=== PATIENT | female | born 1940 | race Caucasian/White ===

== ENCOUNTER → 2020-08-12 | Outpatient (CLI) | payer OTHER, MEDICARE ==
[~2020-08-12] VITALS: Ht 147.3 cm; Wt 54.9 kg
[~2020-08-12] MED LIST: ADVIL200 M1 PO; CARVEDILOL12.5 MG PO; EFFER-K 10 MEQ10 ME1 PO; ENALAPRIL MALEA10 M1 PO; KLOR-CON 10 ER10 MEQ PO; LASIX 40 MG TAB40 M1 OR; POTASSIUM20 PO
[2020-08-12 10:34] VITALS: BP 107/47
[2020-08-12 10:50] LABS: HEMATOCRIT 33.7 % (37.0-47.0); MCH 26.4 pg (26.0-34.0); MCHC 32.7 g/dL (28.0-37.0); MCV 80.7 fL (80.0-100.0); RBC 4.18 mil/uL (4.20-5.00); RDW-CV 14.7 % (10.5-14.5); WBC 5.6 thou/uL (4.0-11.0)
[2020-08-12 11:00] LABS: CALCIUM 9.2 mg/dL (8.5-10.1); CREATININE 0.6 mg/dL (0.6-1.3); POTASSIUM 4.3 mmol/L (3.5-5.1)
[2020-08-12 11:03] LABS: APTT 27.4 Seconds (25.0-31.3); PROTIME 10.7 Seconds (9.20-11.50)
[2020-08-12 11:05] LABS: ALBUMIN 3.2 g/dL (3.4-5.0); TOTAL BILIRUBIN 0.4 mg/dL (<0.1-1.0); TOTAL PROTEIN 6.4 g/dL (6.4-8.2)
[2020-08-12 14:03] VITALS: BP 121/65
--- NOTE | 2020-08-12 14:10 | EKG ---
[place] [address] ELECTROCARDIOGRAM REPORT Name: ADAM MCMILLAN Room: [facility]#: [id number] Admission: 08/12/20 Attend Phys: Lobo Agosto, Discharge: Date of : 44 Date of Service: 08/12/20 1118 Report #: [id number] THIS REPORT FOR: //name// [facility] Test Date: 2020-08-12 Test Time: 11:18:46 Pat Name: ADAM MCMILLAN Department: Room: Gender: F Research And Development Specialist: : 1940 Requested By: Lobo Agosto Order Number: [id number] Jim MD: Lobo Agosto Measurements Intervals Brooks Rate: 51 P: 66 AK: 172 QRS: -12 QRSD: 146 T: 129 QT: 534 QTc: 492 Interpretive Statements Sinus rhythm Left bundle branch block No previous ECG available for comparison Electronically Signed On 08-12-2020 14:10:45 DIRECTOR OF WORKFORCE DEVELOPMENT by Lobo Agosto [email or web address] <ELECTRONICALLY SIGNED> By: Lobo Agosto MD, [facility] 08/12/20 1410 1118 17 Lobo Agosto MD, FACC /EPI
[2020-08-12 14:18] VITALS: BP 118/64
[2020-08-12 14:45] VITALS: BP 112/51
[2020-08-12 15:00] VITALS: BP 112/57
--- NOTE | 2020-08-15 12:35 | CARD ---
[address] [address] CARDIAC CATH REPORT Name: ADAM MCMILLAN Room: [facility] Shahid#: [id number] Admission: 08/12/20 Attend Phys: Lobo Agosto MD Discharge: Date of : 44 Report #: [id number] THIS REPORT FOR: cc: Yamil Bradford MD, David R. MD ~ Lobo Agosto MD [facility] APPROVED REPORT Study performed: 08/12/2020 12:21:30 Patient Status: Out-Patient Room #: Event Personnel: Lobo Agosto Special Collections Librarian, Conor Sanchez RN Supervisor Whipped Topping, [place] RTR Monitor, Marta Red RTR Scrub Exam: Generator Change for a Bi-Ventricular Permanent Pacemaker The patient is a 80 year-old female with a history of . Intraoperative Conscious Sedation Sedation start time: 1305 Case end Time: 1336 Fentanyl 25 mcg Versed 2 mg Implanted Devices: Intica Greg 7 HF-T sn# [id number] (Biotronik) Procedure After explaining the risks, benefits, and alternative options, informed consent was obtained from the patient. The patient was brought to the cardiac catheterization lab and the left chest and shoulder were prepped and draped in the usual fashion. During this case, Fluoroscopy and no contrast were used for imaging. After informed consent was obtained the patient was brought to the interventional radiology lab. The area of the left chest was prepped and draped in sterile fashion. Local anesthesia was achieved with 1% lidocaine. Next an incision was made over the existing device. The device was explanted using blunt dissection and electrocautery. The pocket was flushed with antibiotic solution. The pacing ICD lead, LV lead and right atrial lead were checked. Thresholds and sensing were appropriate. Next a dual-chamber biventricular ICD generator was attached to the leads. Redundant lead and generator were replaced within the pocket. The deep tissues [place] [address] CARDIAC CATH REPORT Name: ADAM MCMILLAN Room: [facility]#: [id number] Admission: 08/12/20 Attend Phys: Lobo Agosto MD Discharge: Date of : 44 Report #: [id number] stitches of 2-0 Vicryl. The skin incision was then closed with a single subcuticular stitch of 4-0 Vicryl. Several Steri-Strips were placed across the incision. The incision was then covered with a Telfa pad dressing. Tolerated procedure well without complication. Complications The patient tolerated the procedure well and there were no complications associated with the procedure. Findings Specimens Removed: No The sensed P wave was 2.50 mV. Right atrial pacing threshold was 3.0 V at 1.0 minutes atrial lead impedance was 2100 ohms. The sensed R wave was 8.0 mV. The right ventricular pacing threshold was 29 V at 0.40 ms. The impedance was 409 ohms. LV lead threshold was 2.0 V at 0.40 ms. The sensed R wave was 6.0 mV. Pacing impedance was 1087 ohms. Conclusion 1. Biventricular ICD generator at elective replacement. 2. Successful replacement of biventricular ICD generator. Recommendations 1. Follow-up site check in 1 week. 2. Follow-up device interrogation 1 to 2 months. <ELECTRONICALLY SIGNED> By: Lobo Agosto MD, FACC 08/15/20 1235 1235 1235Michaedonna Agosto MD, FACC /INF
== END | disposition home or self-care (01) ==
LOC: M.CL 09:59
PROVIDERS: ATTEND Internal Medicine Cardiovascular Disease
DX: Z45.02 Encounter for adjustment and management of automatic implantable cardiac defibrillator (principal); R06.02 Shortness of breath; I11.0 Hypertensive heart disease with heart failure; I50.9 Heart failure, unspecified; Z98.890 Other specified postprocedural states; Z79.899 Other long term (current) drug therapy